=== PATIENT | female | born 1990 | race Caucasian/White ===

== ENCOUNTER 2017-01-04 22:47 | Emergency (ER) | payer OTHER ==
[~2017-01-04] VITALS: Ht 172.7 cm; Wt 76.7 kg
[2017-01-04 23:14] VITALS: BP 135/71
--- NOTE | 2017-01-04 23:50 | NUR ---
Pt taken to bed 6.
--- NOTE | 2017-01-04 23:55 | NUR ---
Patient being evaluated by Dr. Pacheco at bedside.
[2017-01-05 00:10] VITALS: BP 135/71
--- NOTE | 2017-01-05 00:10 | NUR ---
Patient discharged with v/s stable. Written and verbal after care instructions given and explained. Patient verbalized understanding. Ambulatory with steady gait. All questions addressed prior to discharge. Advised to follow up with PMD.
== END 2017-01-05 00:10 | disposition home or self-care (01) ==
LOC: MED 22:47
DX: Z00.01 Encounter for general adult medical examination with abnormal findings (principal); L60.8 Other nail disorders
CPT/HCPCS: 99281